=== PATIENT | male | born 1990 | race Caucasian/White ===

== ENCOUNTER 2019-05-18 02:22 | Emergency (ER) | payer OTHER ==
[~2019-05-18] VITALS: Ht 182.9 cm; Wt 127.0 kg
[2019-05-18 02:27] VITALS: BP 175/98; Ht 182.9 cm; Wt 127.0 kg
== END 2019-05-18 02:48 | disposition other institution (70) ==
LOC: ED 02:22
DX: Z02.89 Encounter for other administrative examinations (principal)